=== PATIENT | male | born 1980 | race Caucasian/White ===

== ENCOUNTER → 2018-02-27 | Outpatient (CLI) | payer SELFPAY ==
--- NOTE | 2018-02-27 12:48 | US ---
EXAM DESCRIPTION: Liver CLINICAL HISTORY: R94.5 liver function tests. Change in bowel habits. Nausea. COMPARISON: None. TECHNIQUE: Real-time sonographic images of the right upper quadrant of the abdomen are obtained. FINDINGS: Pancreas is unremarkable. The right lobe of the liver measures 19.6cm. The liver is diffusely heterogeneous and increased in echogenicity. No focal hepatic mass is seen. The gallbladder is normally distended and free of abnormal internal echogenicities. No gallbladder wall thickening or pericholecystic fluid is seen. The common bile duct measures 4.8 mm in greatest diameter. The right kidney measures 10.2 cm and is unremarkable. Visualized IVC and abdominal aorta are within normal limits. IMPRESSION: Hepatomegaly with heterogeneous increased echogenicity of the liver suggest diffuse fatty infiltration although other etiologies can have a similar appearance. Electronically signed by: Jefferson Menchaca MD 02/27/2018 12:47 PM CDT
== END ==
LOC: US 10:12
PROVIDERS: ATTEND Physician Assistant
DX: R94.5 Abnormal results of liver function studies (principal); R16.0 Hepatomegaly, not elsewhere classified

== ENCOUNTER → 2018-02-27 | Outpatient (CLI) | payer OTHER | LOC: LAB.O 16:05 | PROVIDERS: ATTEND Physician Assistant | DX: R94.5 Abnormal results of liver function studies (principal) ==